=== PATIENT | female | born 1995 | race Two or more races ===

== ENCOUNTER 2018-04-04 13:15 | Inpatient (IN) | payer OTHER ==
[~2018-04-04] VITALS: Ht 162.6 cm; Wt 73.9 kg
[2018-05-02] MEDS ORDERED: PRENATAL FORMU1 EAC1 PO (22:19)
[2018-05-02] MEDS ORDERED: SYNTHROID50 MCG PO (22:19)
== END 2018-05-05 15:32 | disposition home or self-care (01) | DRG 807 ==
LOC: LDR 05-02 19:50 → OB/GYN 05-03 02:55 → LDR 05-03 13:15 → OB/GYN 05-05 15:32
PROC: 4A1HXCZ Monitoring of Products of Conception, Cardiac Rate, External Approach (ICD-10-PCS; 2018-05-02)
PROC: 10E0XZZ Delivery of Products of Conception, External Approach (ICD-10-PCS; principal; 2018-05-03)
PROC: 0KQM0ZZ Repair Perineum Muscle, Open Approach (ICD-10-PCS; 2018-05-03)
PROC: 4A033R1 Measurement of Arterial Saturation, Peripheral, Percutaneous Approach (ICD-10-PCS; 2018-05-03)
DX: O70.1 Second degree perineal laceration during delivery (principal); Z37.0 Single live birth; Z3A.39 39 weeks gestation of pregnancy